=== PATIENT | male | born 1985 | race Hispanic/Latino ===

== ENCOUNTER 2018-07-24 19:33 | Emergency (ER) | payer BC, SELFPAY ==
[2018-07-24] MEDS ORDERED: hydrOXYzine 25 MG TAB ONE (19:48)
[2018-07-24] MEDS ORDERED: Famotidine 20 MG TAB ONE (19:50)
== END 2018-07-24 19:55 | disposition home or self-care (01) ==
LOC: BURERS 19:33
DX: L50.0 Allergic urticaria (principal); E11.9 Type 2 diabetes mellitus without complications; I10 Essential (primary) hypertension; Z79.84 Long term (current) use of oral hypoglycemic drugs; Z79.899 Other long term (current) drug therapy
CPT/HCPCS: 99282

== ENCOUNTER 2019-06-14 11:24 | Emergency (ER) | payer OTHER, SELFPAY | END 2019-06-14 12:15 | disposition home or self-care (01) | LOC: BURERS 11:24 | DX: J11.1 Influenza due to unidentified influenza virus with other respiratory manifestations (principal); E11.65 Type 2 diabetes mellitus with hyperglycemia; Z79.84 Long term (current) use of oral hypoglycemic drugs | CPT/HCPCS: 36416; 99283 ==

== ENCOUNTER 2021-07-01 03:31 | Emergency (ER) | payer BC, OTHER ==
[2021-07-01] MEDS ORDERED: Boostrix 0.5 ML (Tdap) VIAL ONE (04:02)
[2021-07-01 04:51] LABS: #Basophils 0.1 thou/uL (0.0-0.2); #Eosinphils 0.1 thou/uL (0.0-0.7); #Lymphocytes 2.2 thou/uL (1.20-3.40); #Monocytes 0.8 thou/uL (0.11-0.59); #Neutrophils 7.5 thou/uL (1.40-6.50); %Basophils 0.8 % (0.0-1.0); %Eosinophils 0.7 % (0.0-10.0); %Lymphocytes 20.8 % (21.0-51.0); %Monocytes 7.4 % (0.0-10.0); %Neutrophils 70.3 % (42.0-75.0); Hemoglobin 15.6 g/dL (14.0-18.0); Mean Corpuscular HGB CONC 33.5 g/dL (32.0-36.0); Mean Corpuscular Hemoglobin 28.3 pg (27.0-31.0); Mean Corpuscular Volume 84.5 fL (78.0-98.0); Mean Platelet Volume 7.5 fL (7.4-10.4); Platelet Count 214 thou/uL (130-400); RBC Distribution Width 12.3 % (11.5-14.5); White Blood Cell (WBC) Count 10.6 thou/uL (4.8-10.8)
[2021-07-01 05:02] LABS: ALT (SGPT) 47 U/L (8-55); AST (SGOT) 21 U/L (5-34); Albumin 4.3 g/dL (3.5-5.0); Alkaline Phosphatase 118 U/L (40-110); Anion Gap 17 mmol/L (10-20); BUN (Urea Nitrogen) 12 mg/dL (8.9-20.6); Bilirubin, Total 0.5 mg/dL (0.2-1.2); CRP (Inflammatory) 0.97 mg/dL (= or < 0.5); Calc. Creatinine Clearance 0 mL/min (70-130); Calcium 9.8 mg/dL (7.8-10.44); Carbon Dioxide 24 mmol/L (22-29); Chloride 99 mmol/L (98-107); Globulin 3.5 g/dL (2.4-3.5); Glucose 322 mg/dL (70-105); Potassium 4.1 mmol/L (3.5-5.1); Protein, Total 7.8 g/dL (6.0-8.3); Sodium 136 mmol/L (136-145)
[2021-07-01] MEDS ORDERED: Insulin Regular 300 UNITS/3 ML VIAL ONE (05:24)
[2021-07-01] MEDS ORDERED: Clindamycin/D5W 600 mg/50 ml Premix Bag ONE ×2 (06:46→16:07)
[2021-07-01] MEDS ORDERED: Acetaminophen 500 MG TAB ONE (06:59)
[2021-07-01 07:06] LABS: SARS-CoV-2 NAA Rapid Test Not Detected (NotDetected)
[2021-07-01] MEDS ORDERED: Acetaminophen 325 MG TAB ONE (13:37)
[2021-07-01] MEDS ORDERED: Metoclopramide HCl 10 MG/2 ML VIAL ONE (16:10)
== END 2021-07-01 16:33 | disposition short-term general hospital (02) ==
LOC: BURERS 03:31
DX: M65.141 Other infective (teno)synovitis, right hand (principal); E11.65 Type 2 diabetes mellitus with hyperglycemia; Z20.822 Contact with and (suspected) exposure to COVID-19; Z79.84 Long term (current) use of oral hypoglycemic drugs
CPT/HCPCS: 36416; 80053; 85025; 86140; 87070; 87205; 90471; 90715; 96365; 96375; 96376; 36415-59; J1815; J1956; J2765; J3490; U0002